=== PATIENT | male | born 1955 | race Caucasian/White ===

== ENCOUNTER → 2023-11-11 15:37 | Outpatient (REF) | payer MEDICARE, OTHER, SELFPAY | LOC: HWRAD 15:37 | PROVIDERS: ATTENDING PHYSICIAN Internal Medicine | DX: J98.4 Other disorders of lung (principal) | CPT/HCPCS: 71250 ==

== ENCOUNTER → 2024-08-31 12:42 | Outpatient (REF) | payer MEDICARE, OTHER, SELFPAY | LOC: RAD 12:42 | PROVIDERS: ATTENDING PHYSICIAN Internal Medicine | DX: R05.9 Cough, unspecified (principal) | CPT/HCPCS: 71046 ==

== ENCOUNTER → 2025-02-01 09:13 | Outpatient (REF) | payer MEDICARE, OTHER, SELFPAY | LOC: RAD 09:13 | PROVIDERS: ATTENDING PHYSICIAN Internal Medicine | DX: R05.9 Cough, unspecified (principal); R52 Pain, unspecified | CPT/HCPCS: 71046; 72072 ==

== ENCOUNTER → 2025-04-12 12:11 | Outpatient (REF) | payer MEDICARE, OTHER, SELFPAY | LOC: RSP 12:11 | PROVIDERS: ATTENDING PHYSICIAN Internal Medicine | DX: R06.02 Shortness of breath (principal) | CPT/HCPCS: 88738; 94010; 94727; 94729 ==

== ENCOUNTER → 2025-05-13 16:40 | Outpatient (REF) | payer MEDICARE, OTHER, SELFPAY | LOC: RAD 16:40 | PROVIDERS: ATTENDING PHYSICIAN Physician Assistant Medical; FAMILY PHYSICIAN Internal Medicine | DX: I48.0 Paroxysmal atrial fibrillation (principal) | CPT/HCPCS: 71275; Q9967 ==